=== PATIENT | male | born 1975 | race Caucasian/White ===

== ENCOUNTER → 2025-02-03 09:59 | Outpatient (REF) | payer OTHER, SELFPAY | LOC: HWRCS 09:59 | PROVIDERS: ATTENDING PHYSICIAN Family Medicine | DX: R60.0 Localized edema (principal); I50.20 Unspecified systolic (congestive) heart failure | CPT/HCPCS: 93306 ==

== ENCOUNTER → 2025-04-13 13:37 | Outpatient (REF) | payer OTHER, SELFPAY | LOC: RAD 13:37 | PROVIDERS: ATTENDING PHYSICIAN Surgery Vascular Surgery; FAMILY PHYSICIAN Family Medicine | DX: I87.1 Compression of vein (principal) | CPT/HCPCS: 93970; 93978 ==

== ENCOUNTER → 2025-05-15 08:12 | Outpatient (REF) | payer OTHER, SELFPAY | LOC: HWRCS 08:12 | PROVIDERS: ATTENDING PHYSICIAN Internal Medicine Cardiovascular Disease; FAMILY PHYSICIAN Family Medicine | DX: I44.7 Left bundle-branch block, unspecified (principal) | CPT/HCPCS: 78452; 93017; A9500; J2785 ==